=== PATIENT | female | born 1990 ===

== ENCOUNTER 2021-05-08 17:04 | Emergency (ER) | payer MEDICAID ==
[~2021-05-08] VITALS: Ht 167.6 cm; Wt 128.4 kg
[2021-05-08] MEDS ORDERED: ACETAMINOPHEN 500 MG TAB PO ONE (20:15)
[2021-05-08] MEDS ORDERED: IBUPROFEN 800 MG TAB PO ONE (20:15)
[2021-05-08 20:35] VITALS: BP 124/78
== END 2021-05-08 22:26 | disposition home or self-care (01) ==
LOC: ER 17:04
DX: S83.91XA Sprain of unspecified site of right knee, initial encounter (principal); M25.461 Effusion, right knee; E66.9 Obesity, unspecified; Z68.42 Body mass index [BMI] 45.0-49.9, adult; W01.0XXA Fall on same level from slipping, tripping and stumbling without subsequent striking against object, initial encounter; Y93.89 Activity, other specified; Y92.89 Other specified places as the place of occurrence of the external cause; Y99.8 Other external cause status
CPT/HCPCS: 29505; 73562; 81025